=== PATIENT | female | born 1975 | race African-American/Black ===

== ENCOUNTER 2019-07-11 09:21 | Emergency (ER) | payer OTHER, MEDICARE, SELFPAY ==
[2019-07-11 09:33] VITALS: BP 95/49; PULSE 58; RESP 20; TEMP 37.2; O2SAT 100
--- NOTE | 2019-07-11 10:07 | ED.URI ---
HPI - URI/Sore Throat General Chief Complaint: Upper Respiratory Infection Stated Complaint: vomiting/cough History of Present Illness HPI Narrative: Patient is a 44-year-old female who presents complaining of nausea, vomiting, headache and generalized body aches x1 day. She reports unknown fever. She reports vomiting x6 yesterday. She reports having Zofran at home and did take with moderate relief. She also reports taking ibuprofen this a.m. She denies sore throat. She reports that she did have her flu shot. MD elicited complaint: other (nausea, generalized body aches) Related Data Home Medications Medication Instructions Recorded Confirmed Cbd 07/11/19 atorvastatin 20 mg PO HS 07/11/19 07/11/19 ibuprofen 800 mg PO BID 07/11/19 07/11/19 nebivolol [Bystolic] 2.5 mg PO DAILY 07/11/19 07/11/19 omeprazole 40 mg PO DAILY 07/11/19 07/11/19 polyvinyl alcohol-povidone [Clear drp OPHTHALMIC (EYE) 07/11/19 Eyes Natural Tears] topiramate 100 mg PO BID 07/11/19 07/11/19 Allergies Allergy/AdvReac Type Severity Reaction Status Date / Time cefuroxime Allergy Unknown Swelling Verified 07/11/19 09:46 clindamycin Allergy Unknown LOCAL Verified 07/11/19 09:46 REACTION TO IV SITE codeine Allergy Unknown Vomiting Verified 07/11/19 09:46 erythromycin base Allergy Unknown Vomiting Verified 07/11/19 09:46 hydromorphone Allergy Unknown Vomiting Verified 07/11/19 09:46 MUSCLE RELAXANTS Allergy Severe Swelling Uncoded 07/11/19 09:46 of Lip/Tongue/Throat Review of Systems Review of Systems: Narrative: CONSTITUTIONAL: Reports chills and generalized body aches. EYES: Denies visual changes, redness, or discharge. ENT: Denies rhinorrhea, congestion, sore throat, or otalgia. CARDIOVASCULAR: Denies chest pain, palpitations, or edema. RESPIRATORY: Reports cough, denies dyspnea. GASTROINTESTINAL: Denies abdominal pain or diarrhea. Reports nausea and vomiting. GENITOURINARY: Denies dysuria or hematuria. SKIN: Denies rash or itching. MUSCULOSKELETAL: Denies back pain, joint pain, or myalgia. NEUROLOGIC: Reports headache, denies numbness, dizziness, or weakness. PSYCHIATRIC: Denies anxiety or depression. [facility] Past Medical History Medical History HTN (hypertension) Hypercholesterolemia IBS (irritable bowel syndrome) Thoracic outlet syndrome Surgical History Surgical History H/O: hysterectomy History of cardiac catheterization Social History Social History (Updated 07/11/19 @ 10:13 by MADAI May) Smoking status: Never smoker Alcohol intake: current Alcohol use details: socially Substance use: never Occupation/Education: occupation Gender identity (if verbalized by the patient): Female Exam Narrative: Exam Narrative: GENERAL: Well-appearing, well-nourished, and in no acute distress. HEAD: Normocephalic, atraumatic. EYES: EOMI. No redness or drainage. Conjunctiva are normal. ENT: Mucous membranes pink and moist. Nares clear. No rhinorrhea. TMs normal bilaterally. Throat normal. Uvula midline. NECK: AROM. Supple. No lymphadenopathy. CHEST: No respiratory distress. Clear to auscultation. HEART: Regular rate and rhythm. No murmur appreciated. Normal peripheral pulses. GI: Soft, nontender without rebound, or guarding. No distention. Bowel sounds normal in all quadrants. EXTREMITIES: Normal range of motion. No edema. SKIN: Warm, dry, no rash. NEURO: No focal deficits. Alert and oriented x3. Gait steady. PSYCH: Normal affect. No signs of depression or anxiety. Course Vital Signs Vital signs: Vital Signs Temperature 37.2 C 07/11/19 09:33 Pulse Rate 58 L 07/11/19 09:33 Respiratory Rate 07/11/19 09:33 Blood Pressure 95/49 L 07/11/19 09:33 Pulse Oximetry 100 07/11/19 09:33 Temperature 37.2 C 07/11/19 09:33 Pulse Rate 58 L 07/11/19 09:33
[2019-07-11 10:09] VITALS: BP 96/54
== END 2019-07-11 10:26 | disposition home or self-care (01) ==
PROVIDERS: Emergency Provider Nurse Practitioner
DX: J10.1 Influenza due to other identified influenza virus with other respiratory manifestations (principal); I10 Essential (primary) hypertension; E78.00 Pure hypercholesterolemia, unspecified; G54.0 Brachial plexus disorders
CPT/HCPCS: 87804; 99213; G0463

== ENCOUNTER → 2021-03-02 08:07 | Outpatient (CLI) | payer BC, MEDICARE, SELFPAY ==
--- NOTE | ~2021-03-02 | MR_ITS ---
EXAMINATION: MR foot LT wo con DATE: 03/02/2021 09:36 INDICATION: Peroneal tendinitis with left foot pain, numbness and tingling. TECHNIQUE: Magnetic resonance imaging (MRI) of the right mid and hindfoot including the ankle was per formed without intravenous contrast. Sequences included sagittal, coronal, and axial proton-density w eighted fast spin echo without and with fat saturation. COMPARISON: None. FINDINGS: Medial ankle ligaments: Deep and superficial deltoid ligaments as well as the spring ligament are normal. Lateral ankle ligaments: The anterior and posterior inferior tibiofibular ligaments are normal. The anterior talofibular, calc aneofibular and posterior talofibular ligaments are normal. Tendons: Achilles tendon is normal. The peroneus longus and brevis tendons are normal. The tibialis anterior a nd extensor hallucis longus and extensor digitorum longus tendons are normal. The tibialis posterior, flexor digitorum longus and flexor hallucis longus tendons are normal. Plantar fascia: Plantar aponeurosis is normal. Bones/other: Bone alignment is normal with normal marrow signal throughout. No fracture, reactive edema or patholo gic marrow replacing process. Joint spaces are normal with no evident chondromalacia or osteophytosis . No erosions. Lisfranc ligament complex is normal. Intrinsic musculature of the foot is unremarkable . Fluid: Physiologic amount fluid in the joint spaces. No tenosynovitis, bursitis or other abnormal fluid shira ections. IMPRESSION: 1. Normal MRI of the left ankle, mid and hindfoot. Reviewed, dictated and finalized at location A.
== END ==
PROVIDERS: PCP Internal Medicine; Visit Provider Podiatrist Foot & Ankle Surgery
DX: M76.72 Peroneal tendinitis, left leg (principal)
CPT/HCPCS: 73718

== ENCOUNTER 2022-08-17 08:52 | Emergency (ER) | payer BC, SELFPAY ==
--- NOTE | ~2022-08-17 | CT_ITS ---
EXAMINATION: CT abdomen pelvis wo con DATE: 08/17/2022 10:19 INDICATION: Right flank pain TECHNIQUE: Computed tomography (CT) of the abdomen and pelvis was performed without intravenous contr ast. Automated exposure control and iterative reconstruction technique were employed. The dose-length product was 638.71 mGy-cm. COMPARISON: None FINDINGS: Mild discoid atelectasis in the right middle lobe. Heart size is normal. No pericardial or pleural ef fusion. Liver, gallbladder, spleen, pancreas and bilateral adrenal glands are normal. 7.2 cm and 1.5 cm cysts at the lower pole of the right kidney. 1 mm nonobstructing left renal stone. No ureteral sto ifrah or hydronephrosis. Bowels including the appendix are normal. Bladder is normal. The uterus is not identified and has likely been surgically resected. Bilateral adnexa are unremarkable. Small amount of likely physiologic free fluid in the deep pelvis. No abscess or free intraperitoneal gas. Linear s carring in the subcutaneous fat at the right flank. IMPRESSION: 1. Normal appendix. No acute intra-abdominal/pelvic process. 2. 1 mm nonobstructing left renal stone. Reviewed, dictated and finalized at location A.
--- NOTE | ~2022-08-17 | XR_ITS ---
EXAMINATION: [id number] DATE: 08/17/2022 10:23 INDICATION: Right rib pain and cough TECHNIQUE: PA view of the chest and 3 views of the right ribs were obtained. COMPARISON: None FINDINGS: No rib fractures identified. No pneumothorax. No focal infiltrates, pleural effusion or pulmonary sujatha ma. Cardiomediastinal silhouette is normal. 40 degree thoracic dextroscoliosis. IMPRESSION: 1. No rib fracture or acute cardiopulmonary disease. Reviewed, dictated and finalized at location A.
[2022-08-17 08:55] VITALS: BP 130/79; PULSE 100; RESP 18; TEMP 36.4; O2SAT 100
[2022-08-17 09:21] LABS: Basophils Absolute Auto 0.1 K/mm3 (0.0-0.1); Basophils Percent Auto 0.8 % (0.2-1.2); Eosinophils Absolute Auto 0.2 K/mm3 (0-0.3); Eosinophils Percent Auto 2.3 % (0-4.4); Hematocrit 41.9 % (37.0-47.0); Hemoglobin 13.7 g/dL (12.0-15.0); Immature Granulocyte Absolute 0.02 K/mm3 (0.00-0.031); Immature Granulocyte Percent A 0.2 % (0-0.5); Lymphocytes Absolute Auto 1.37 K/mm3 (0.9-3.2); Lymphocytes Percent Auto 15.9 % (18.3-44.2); Mean Corpuscular HGB Conc 32.7 g/dl (32-36); Mean Corpuscular Hemoglobin 31.2 pg (26-34); Mean Corpuscular Volume 95.4 fl (80-100); Mean Platelet Volume 9.5 fl (7.4-10.4); Monocytes Absolute Auto 0.4 K/mm3 (0.1-0.6); Monocytes Percent Auto 4.5 % (2.6-8.5); Neutrophils Absolute Auto 6.6 K/mm3 (1.3-6.7); Neutrophils Percent Auto 76.3 % (45.5-73.1); Platelet Count Result 235 k/mm3 (150-375); Red Blood Count 4.39 M/mm3 (4.2-5.4); Red Cell Distribution Width 13.8 % (11.5-14.5); White Blood Count 8.6 K/mm3 (4.5-10.0)
[2022-08-17 09:31] LABS: Alanine Aminotransferase 25 U/L (6-35); Albumin Level 4.3 g/dL (3.5-5.1); Alkaline Phosphatase 104 U/L (38-126); Anion Gap 8 mmol/L (8-16); Aspartate Amino Transferase 31 U/L (14-36); Bilirubin,Total 0.7 mg/dL (0.2-1.3); Blood Urea Nitrogen 5 mg/dL (7-17); Calcium 8.8 mg/dL (8.4-10.2); Carbon Dioxide 19 mmol/L (22-30); Chloride 112 mmol/L (98-107); Estimated CRCL calculation 67 ml/min; Estimated Glomerular Filt Rate > 60; Glucose 104 mg/dL (65-110); Potassium 3.7 mmol/L (3.4-5.0); Sodium 139 mmol/L (137-145)
[2022-08-17 09:41] LABS: Appearance Urine Clear (Clear); Bilirubin Urine Negative (Negative); Blood Urine Negative (Negative); Color Urine Yellow (Yellow); Glucose Urine UA Negative (Negative); Ketones Urine Negative (Negative); Leukocyte Esterase Ur Negative LEU/UL (Negative); Nitrate Urine Negative (Negative); Protein Urine Negative (Negative); Specific Grav Ur 1.007 (1.001-1.035); Urobilinogen Urine 0.2 mg/dL (<2.0); pH Urine 6.5 (5.0-9.0)
[2022-08-17 09:46] LABS: Add Urine Microscopic? NO
[2022-08-17] MEDS: SODIUM CHLORIDE 0.9% IV 1,000 ML 999 ML IV CONT (10:27)
--- NOTE | 2022-08-17 11:02 | ED.BACK ---
HPI - Back Pain/Injury General Chief Complaint: Back Pain/Injury Stated Complaint: R. sided back pain. Time Seen by Provider: 08/17/22 09:06 Source: patient Mode of arrival: ambulatory Limitations: no limitations History of Present Illness HPI Narrative: 47-year-old female presents today with complaints of right side abdomen and right flank pain that started about a week ago. Patient states that it had gotten better but then came back. She denies any dysuria, hematuria, but does endorse urinary frequency. Denies any nausea, vomiting, diarrhea. She has been told in the past that she has a significant on her right kidney. The patient admitted that her creatinine levels were elevated in the past. She denies any trauma or known injury to this area. Denies cough, fever, body aches, chills. She does states she had some sinus issues but those are cleared. Related Data Home Medications Medication Instructions Recorded Confirmed Cbd 07/11/19 atorvastatin 20 mg tablet 20 mg PO HS 07/11/19 07/11/19 nebivolol 2.5 mg tablet (Bystolic) 2.5 mg PO DAILY 07/11/19 07/11/19 omeprazole 40 mg capsule,delayed 40 mg PO DAILY 07/11/19 07/11/19 release topiramate 100 mg tablet 100 mg PO BID 07/11/19 07/11/19 duloxetine 30 mg capsule,delayed 30 mg PO BID 08/17/22 release Allergies Allergy/AdvReac Type Severity Reaction Status Date / Time cefuroxime Allergy Unknown Swelling Verified 08/17/22 09:05 clindamycin Allergy Unknown LOCAL Verified 08/17/22 09:05 REACTION TO IV SITE codeine Allergy Unknown Vomiting Verified 08/17/22 09:05 erythromycin base Allergy Unknown Vomiting Verified 08/17/22 09:05 hydromorphone Allergy Unknown Vomiting Verified 08/17/22 09:05 MUSCLE RELAXANTS Allergy Severe Swelling Uncoded 08/17/22 09:05 of Lip/Tongue/Throat Review of Systems Review of Systems: CONSTITUTIONAL: Denies fever, chills, or sweats. EYES: Denies visual changes, redness, or discharge. ENT: Denies rhinorrhea, congestion, sore throat, or otalgia. CARDIOVASCULAR: Denies chest pain, palpitations, or edema. RESPIRATORY: Denies cough or dyspnea. GASTROINTESTINAL: Right flank and right abdominal pain. Denies nausea, vomiting, or diarrhea. GENITOURINARY: Urinary frequency. Denies dysuria or hematuria. SKIN: Denies rash or itching. MUSCULOSKELETAL: Denies back pain, joint pain, or myalgia. NEUROLOGIC: Denies headache, numbness, dizziness, or weakness. PSYCHIATRIC: Denies anxiety or depression. [facility] Past Medical History Medical History (Updated 08/17/22 @ 16:42 by Maria Rowan APRN) HTN (hypertension) Hypercholesterolemia IBS (irritable bowel syndrome) Thoracic outlet syndrome Surgical History Surgical History H/O: hysterectomy History of cardiac catheterization Social History Social History Smoking status: Never smoker Alcohol intake: current Alcohol use details: socially Substance use: never Occupation/Education: occupation Gender identity (if verbalized by the patient): Female Exam Narrative: GENERAL: Well-appearing, well-nourished, and in no acute distress. HEAD: Normocephalic, atraumatic. EYES: PERRLA and EOMI. NECK: Supple. No adenopathy or masses. No carotid bruits or JVD CHEST: Clear to auscultation. No respiratory distress. No wheezes rales or rhonchi. Right posterior rib tenderness. HEART: Regular rate and rhythm. No murmur heard. Normal peripheral pulses. ABDOMEN: Soft, nontender, nondistended, normal active bowel sounds. EXTREMITIES: Normal range of motion. No edema. SKIN: Warm, dry, no rash. NEURO: No focal deficits. Alert and oriented x3. PSYCH: Normal mood and affect. Course Vital Signs Vital signs: Vital Signs Temperature 97.6 F 08/17/22 08:55 Pulse Rate 100 08/17/22 08:55 Respiratory Rate 18 08/17/22 08:55 Blood Pressure 130/79 08/17/22 08:55
[2022-08-17] MEDS: KETOROLAC 30 MG/ML VIAL (*BKC) IV PUSH (11:25)
[2022-08-17 11:44] VITALS: BP 124/68; PULSE 74; RESP 16; O2SAT 100
[2022-08-17 12:54] VITALS: BP 139/74; PULSE 82; RESP 14; O2SAT 98
== END 2022-08-17 12:55 | disposition home or self-care (01) ==
PROVIDERS: Emergency Medicine; Emergency Provider Nurse Practitioner Family; PCP Internal Medicine
DX: S39.012A Strain of muscle, fascia and tendon of lower back, initial encounter (principal); R10.9 Unspecified abdominal pain; N20.0 Calculus of kidney; I10 Essential (primary) hypertension; X58.XXXA Exposure to other specified factors, initial encounter
CPT/HCPCS: 36415; 71101; 74176; 80053; 81003; 85025; 96361; 96374; 99284; J1885; J7030